=== PATIENT | female | born 1970 | race Caucasian/White ===

== ENCOUNTER → 2017-03-17 | Emergency (ER) | payer BC ==
[~2017-03-17] VITALS: Wt 117.9 kg
[~2017-03-17] MED LIST: CLARITIN10 MG PO; ZITHROMAX Z PA250 MG PO
== END ==
LOC: ED 15:45
DX: S80.11XA Contusion of right lower leg, initial encounter (principal); Z98.890 Other specified postprocedural states; W22.8XXA Striking against or struck by other objects, initial encounter; Y93.89 Activity, other specified; Y92.89 Other specified places as the place of occurrence of the external cause; Y99.9 Unspecified external cause status

== ENCOUNTER → 2017-06-14 | Outpatient (CLI) | payer BC ==
[2017-06-14 07:53] LABS: BASO % 0.2 % (0.0-1.0); EOS # 0.2 10*3/uL (0.0-0.4); EOS % 4.4 % (1.0-4.0); HEMATOCRIT 36.4 % (37.0-47.0); HEMOGLOBIN 10.9 g/dl (12.0-16.0); LYMPH # 1.3 10*3/uL (1.3-4.4); LYMPH % 26.1 % (27.0-41.0); MEAN CELL VOLUME 74.3 fl (81.0-99.0); MEAN CORPUSCULAR HGB 22.2 pg (27.0-31.0); MEAN CORPUSCULAR HGB CONC 29.9 g/dl (33.0-37.0); MONO # 0.4 10*3/uL (0.1-1.0); MONO % 7.8 % (3.0-9.0); NEUT # 3.1 10*3/uL (2.3-7.9); NEUT % 61.1 % (47.0-73.0); PLATELET COUNT AUTOMATED 225 10*3/uL (130-400); RED CELL DISTRI WIDTH 15.5 % (0-14.5)
[2017-06-14 08:26] LABS: ALBUMIN 3.4 gm/dl (3.1-4.5); ALKALINE PHOSPHATASE 73 U/L (45-117); BILIRUBIN, DIRECT < 0.1 mg/dL (0.0-0.2); BUN 14 mg/dl (7-24); CHLORIDE 106 mmol/L (98-107); CHOLESTEROL 147 mg/dL (<200); CREATININE 0.81 mg/dL (0.55-1.02); HDL CHOLESTEROL 44 mg/dl (40-60); LDL CHOLESTEROL 77 mg/dL (9-159); POTASSIUM 4.2 mmol/L (3.5-5.1); SGOT/AST 14 IU/L (3-35); SGPT/ALT 19 U/L (12-78); SODIUM 139 mmol/L (136-145); TOTAL PROTEIN 7.4 gm/dL (6.4-8.2); TRIGLYCERIDES 131 mg/dl (<150); VLDL CHOLESTEROL 26 mg/dL (6-40)
[2017-06-14 08:31] LABS: FREE T4 1.32 ng/dl (0.76-1.46)
[2017-06-15 07:04] LABS: FOLLICLE STIMULATING HORMONE 6.2 mIU/mL (.); LUTEINIZING HORMONE 004283 6.6 mIU/mL (.)
== END | disposition home or self-care (01) ==
LOC: LAB 07:10
PROVIDERS: Internal Medicine
DX: I10 Essential (primary) hypertension (principal); R63.5 Abnormal weight gain; R53.83 Other fatigue; R73.02 Impaired glucose tolerance (oral); E55.9 Vitamin D deficiency, unspecified; J00 Acute nasopharyngitis [common cold]; R42 Dizziness and giddiness

== ENCOUNTER → 2017-06-30 | Outpatient (CLI) | payer BC | END | disposition home or self-care (01) | LOC: US 07:06 | DX: K80.20 Calculus of gallbladder without cholecystitis without obstruction (principal); R10.11 Right upper quadrant pain; K76.0 Fatty (change of) liver, not elsewhere classified; R16.1 Splenomegaly, not elsewhere classified; J98.8 Other specified respiratory disorders ==

== ENCOUNTER → 2017-07-17 | Outpatient (CLI) | payer BC ==
[2017-07-17 08:21] LABS: BASO % 0.3 % (0.0-1.0); EOS # 0.2 10*3/uL (0.0-0.4); EOS % 2.9 % (1.0-4.0); HEMATOCRIT 37.2 % (37.0-47.0); HEMOGLOBIN 10.9 g/dl (12.0-16.0); LYMPH # 1.7 10*3/uL (1.3-4.4); LYMPH % 25.2 % (27.0-41.0); MEAN CELL VOLUME 75.6 fl (81.0-99.0); MEAN CORPUSCULAR HGB 22.2 pg (27.0-31.0); MEAN CORPUSCULAR HGB CONC 29.3 g/dl (33.0-37.0); MONO # 0.5 10*3/uL (0.1-1.0); MONO % 7.5 % (3.0-9.0); NEUT # 4.2 10*3/uL (2.3-7.9); NEUT % 63.8 % (47.0-73.0); PLATELET COUNT AUTOMATED 239 10*3/uL (130-400); RED BLOOD COUNT 4.92 10*6/uL (4.10-5.10); RED CELL DISTRI WIDTH 15.8 % (0-14.5); WHITE BLOOD COUNT 6.5 10*3/uL (4.8-10.8)
[2017-07-17 08:46] LABS: IRON 29 ug/dL (50-170); TOTAL IRON BINDING CAPACITY 332 ug/dl (250-450)
== END | disposition home or self-care (01) ==
LOC: LAB 07:05
PROVIDERS: Internal Medicine
DX: D64.9 Anemia, unspecified (principal)

== ENCOUNTER 2019-08-25 12:39 | Inpatient (IN) | payer BC ==
[~2019-08-25] VITALS: Ht 165.1 cm; Wt 117.7 kg
--- NOTE | 2019-08-25 12:45 | NUR ---
TO ROOM 2 VIA EX, EKG AT BEDSIDE
[2019-08-25 12:47] VITALS: BP 173/72
--- NOTE | 2019-08-25 12:51 | NUR ---
LAB AT BEDSIDE
[2019-08-25 13:01] LABS: BASO % 0.4 % (0.0-1.0); EOS # 0.1 10*3/uL (0.0-0.4); EOS % 1.3 % (1.0-4.0); HEMATOCRIT 43.4 % (37.0-47.0); LYMPH # 1.4 10*3/uL (1.3-4.4); LYMPH % 25.7 % (27.0-41.0); MEAN CELL VOLUME 83.9 fl (81.0-99.0); MEAN CORPUSCULAR HGB 28.2 pg (27.0-31.0); MEAN CORPUSCULAR HGB CONC 33.6 g/dl (33.0-37.0); MEAN PLATELET VOLUME 9.9 fl (9.6-12.3); MONO # 0.3 10*3/uL (0.1-1.0); MONO % 5.5 % (3.0-9.0); NEUT # 3.6 10*3/uL (2.3-7.9); NEUT % 66.9 % (47.0-73.0); PLATELET COUNT AUTOMATED 199 10*3/uL (130-400); RED BLOOD COUNT 5.17 10*6/uL (4.10-5.10); WHITE BLOOD COUNT 5.4 10*3/uL (4.8-10.8)
[2019-08-25 13:11] LABS: ACT PARTIAL THROMBO TIME 25.1 SECONDS (20.0-32.1)
[2019-08-25 13:18] LABS: ALBUMIN 3.8 gm/dl (3.1-4.5); ALKALINE PHOSPHATASE 70 U/L (45-117); BUN 12 mg/dl (7-24); CHLORIDE 107 mmol/L (98-107); CREATININE 0.87 mg/dL (0.55-1.02); POTASSIUM 3.6 mmol/L (3.5-5.1); SGOT/AST 18 IU/L (3-35); SGPT/ALT 27 U/L (12-78); SODIUM 140 mmol/L (136-145); TOTAL PROTEIN 7.6 gm/dL (6.4-8.2)
[2019-08-25 13:19] LABS: TROPONIN I < 0.015 ng/ml (<0.045)
[2019-08-25 15:57] VITALS: BP 163/78
[2019-08-25 16:20] VITALS: BP 160/70
--- NOTE | 2019-08-25 16:20 | NUR ---
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 Chief complaint is CHEST PAIN. Patient arrived via bed from ER. Monitor applied. Initial assessment completed. Vital signs taken and recorded. ARSENIO CHANCE DO notified of admission to the unit. Orders received. See assessment for past medical history, medications and allergies. Patient and/or family oriented to unit. [facility] visitation policy reviewed. Clothing/patient valuable form completed. SWAPNIL PULIDO
--- NOTE | 2019-08-25 16:49 | NUR ---
DR MUNOZ'S ANSWERING SERVICE NOTIFIED OF CONSULT. AWAITING CALL BACK AT THIS TIME.
--- NOTE | 2019-08-25 18:00 | NUR ---
PT NOTIFIED THAT SHE WILL HAVE ECHO AND STRESS TEST ON [employer] IN THE MORNING. PT ALSO NOTIFIED THAT SHE IS TO BE NPO AFTER MIDNIGHT.
--- NOTE | 2019-08-25 18:32 | NUR ---
PT STATES THAT SHE DOES NOT TAKE ANY HOME MEDICATIONS.
[2019-08-25 20:00] VITALS: BP 131/65
--- NOTE | 2019-08-25 20:08 | NUR ---
PT REQUESTED AND RECEIVED PO TYLENOL PER PRN ORDER FOR HEADACHE RATED 5/10. WILL MONITOR EFFECTIVENESS. PT DENIES ANY CHEST PAIN/PRESSURE AT PRESENT TIME. CALL LIGHT IN REACH.
--- NOTE | 2019-08-25 21:03 | NUR ---
EARLIER TYLENOL EFFECTIVE PER PT. WILL MONITOR. CALL LIGHT IN REACH.
[2019-08-26] VITALS: BP 126/65
--- NOTE | 2019-08-26 00:40 | NUR ---
PT SLEEPING IN BED, RESP-EASY AND REGULAR. CALL LIGHT IN REACH. SEE SHIFT ASSESSMENT.
[2019-08-26 06:02] LABS: BASO % 0.7 % (0.0-1.0); EOS # 0.2 10*3/uL (0.0-0.4); EOS % 3.5 % (1.0-4.0); HEMATOCRIT 43.8 % (37.0-47.0); LYMPH # 1.7 10*3/uL (1.3-4.4); LYMPH % 38.9 % (27.0-41.0); MEAN CELL VOLUME 85.7 fl (81.0-99.0); MEAN CORPUSCULAR HGB 28.2 pg (27.0-31.0); MEAN CORPUSCULAR HGB CONC 32.9 g/dl (33.0-37.0); MEAN PLATELET VOLUME 10.1 fl (9.6-12.3); MONO # 0.4 10*3/uL (0.1-1.0); MONO % 8.5 % (3.0-9.0); NEUT # 2.1 10*3/uL (2.3-7.9); NEUT % 48.2 % (47.0-73.0); PLATELET COUNT AUTOMATED 189 10*3/uL (130-400); RED BLOOD COUNT 5.11 10*6/uL (4.10-5.10); WHITE BLOOD COUNT 4.3 10*3/uL (4.8-10.8)
[2019-08-26 06:14] LABS: ALBUMIN 3.5 gm/dl (3.1-4.5); BUN 14 mg/dl (7-24); CHLORIDE 108 mmol/L (98-107); CREATININE 0.83 mg/dL (0.55-1.02); POTASSIUM 4.2 mmol/L (3.5-5.1); SGOT/AST 16 IU/L (3-35); SGPT/ALT 26 U/L (12-78); SODIUM 143 mmol/L (136-145)
[2019-08-26 06:22] LABS: ALKALINE PHOSPHATASE 69 U/L (45-117); CHOLESTEROL 136 mg/dL (<200); FREE T4 1.42 ng/dl (0.76-1.46); HDL CHOLESTEROL 48 mg/dl (40-60); LDL CHOLESTEROL 72 mg/dL (9-159); TOTAL PROTEIN 7.2 gm/dL (6.4-8.2); TRIGLYCERIDES 82 mg/dl (<150); VLDL CHOLESTEROL 16 mg/dL (6-40)
[2019-08-26 06:33] LABS: ACT PARTIAL THROMBO TIME 25.1 SECONDS (20.0-32.1)
[2019-08-26 08:00] VITALS: BP 139/69
--- NOTE | 2019-08-26 10:15 | NUR ---
INFORMED CONSENT OBTAINED FOR LEXISCAN NUCLEAR STRESS TEST WITH DR. MUNOZ. RESTING EKG NSR WITH A RESTING HR OF 62 WITH BP 116/74. LUNGS CLEAR WITH SPO2 OF 96% ON ROOM AIR. PT COMPLETED A 1:00 LEXISCAN PROTOCOL RECEIVING LEXISCAN 0.4 MG IV OVER 10 SECONDS. HAD NO CHEST PAIN OR ANY EKG CHANGES. DID C/O FEELING "WOBBLY" THAT WAS RELIEVED IN RECOVERY. HAD A PEAK HR OF 91 WITH BP OF 130/64. LAST RECOVERY HR OF 96 WITH BP OF 144/60. AWAITING SCANNING IN STABLE CONDITION.
--- NOTE | 2019-08-26 11:59 | NUR ---
PT MEDICATED WITH PRN TYLENOL AT THIS TIME FOR C/O A HEADACHE. WILL MONITOR.
[2019-08-26 12:00] VITALS: BP 136/72
[2019-08-26] MEDS ORDERED: ZESTRIL10 MG PO (13:22)
[2019-08-26] MEDS ORDERED: VISTARIL25 MG PO (13:30)
--- NOTE | 2019-08-26 14:23 | NUR ---
HEPLOCK AND VP OUTCOMES DISCONTINUED. DISCHARGE INSTRUCTIONS REVIEWED. FOLLOW UP CARE DISCUSSED AND PATIENT PROVIDED NUMBER FOR RESIDENT CLINIC.
--- NOTE | 2019-08-26 14:24 | NUR ---
PT TAKEN VIA WHEELCHAIR OUT FOR DISCHARGE BY THE PA.
== END 2019-08-26 14:24 | disposition home or self-care (01) | DRG 311 ==
LOC: ED 12:39 → EDHOLD 14:25 → 4E 14:43
PROVIDERS: Internal Medicine; Nurse Practitioner Family; ADMIT Internal Medicine
PROC: 3E073KZ Introduction of Other Diagnostic Substance into Coronary Artery, Percutaneous Approach (ICD-10-PCS; principal; 2019-08-26)
PROC: 4A02XM4 Measurement of Cardiac Total Activity, External Approach (ICD-10-PCS; principal; 2019-08-26)
DX: I20.9 Angina pectoris, unspecified (principal); Z68.41 Body mass index [BMI] 40.0-44.9, adult; I10 Essential (primary) hypertension; E66.01 Morbid (severe) obesity due to excess calories; R73.9 Hyperglycemia, unspecified; D72.819 Decreased white blood cell count, unspecified; Z98.891 History of uterine scar from previous surgery; R73.03 Prediabetes; Z87.891 Personal history of nicotine dependence; Z82.49 Family history of ischemic heart disease and other diseases of the circulatory system; Z79.899 Other long term (current) drug therapy

== ENCOUNTER → 2019-09-05 | Outpatient (CLI) | payer BC ==
[~2019-09-05] MED LIST changes: +VISTARIL25 MG PO; +ZESTRIL10 MG PO
== END | disposition home or self-care (01) ==
LOC: RESCLI 00:25
DX: Z12.31 Encounter for screening mammogram for malignant neoplasm of breast (principal); I10 Essential (primary) hypertension; F41.9 Anxiety disorder, unspecified; E55.9 Vitamin D deficiency, unspecified; J30.2 Other seasonal allergic rhinitis; R07.82 Intercostal pain; Z79.899 Other long term (current) drug therapy

== ENCOUNTER → 2019-09-16 | Outpatient (CLI) | payer BC | END | disposition home or self-care (01) | LOC: US 03:44 | DX: Z12.31 Encounter for screening mammogram for malignant neoplasm of breast (principal); R07.82 Intercostal pain; I10 Essential (primary) hypertension; F41.9 Anxiety disorder, unspecified; J30.2 Other seasonal allergic rhinitis; E55.9 Vitamin D deficiency, unspecified ==

== ENCOUNTER → 2020-04-24 | Outpatient (CLI) | payer BC ==
[2020-04-24 08:32] LABS: ALBUMIN 3.4 gm/dl (3.1-4.5); BUN 14 mg/dl (7-24); CHLORIDE 110 mmol/L (98-107); CHOLESTEROL 151 mg/dL (<200); CREATININE 0.82 mg/dL (0.55-1.02); POTASSIUM 3.8 mmol/L (3.5-5.1); SGOT/AST 12 IU/L (3-35); SGPT/ALT 22 U/L (12-78); SODIUM 140 mmol/L (136-145); TRIGLYCERIDES 88 mg/dl (<150); VLDL CHOLESTEROL 18 mg/dL (6-40)
[2020-04-24 08:42] LABS: ALKALINE PHOSPHATASE 79 U/L (45-117); HDL CHOLESTEROL 57 mg/dl (40-60); LDL CHOLESTEROL 76 mg/dL (9-159); TOTAL PROTEIN 7.3 gm/dL (6.4-8.2)
== END | disposition home or self-care (01) ==
LOC: LAB 07:41
PROVIDERS: Physician Assistant Medical; ATTEND Family Medicine
DX: Z13.220 Encounter for screening for lipoid disorders (principal)

== ENCOUNTER → 2020-10-29 | Outpatient (CLI) | payer BC | END | disposition home or self-care (01) | LOC: US 08:51 | PROVIDERS: ATTEND Physician Assistant Medical | DX: Z12.31 Encounter for screening mammogram for malignant neoplasm of breast (principal); K76.0 Fatty (change of) liver, not elsewhere classified; K80.20 Calculus of gallbladder without cholecystitis without obstruction; N64.89 Other specified disorders of breast ==

== ENCOUNTER → 2021-12-13 | Outpatient (CLI) | payer BC | END | disposition home or self-care (01) | LOC: MAMMO 11-15 08:30 | PROVIDERS: ATTEND Physician Assistant Medical | DX: Z12.31 Encounter for screening mammogram for malignant neoplasm of breast (principal); N64.9 Disorder of breast, unspecified; N63.11 Unspecified lump in the right breast, upper outer quadrant ==

== ENCOUNTER → 2023-01-19 | Outpatient (CLI) | payer BC | END | disposition home or self-care (01) | LOC: MAMMO 07:28 | PROVIDERS: ATTEND Physician Assistant Medical | DX: Z12.31 Encounter for screening mammogram for malignant neoplasm of breast (principal); N63.11 Unspecified lump in the right breast, upper outer quadrant ==

== ENCOUNTER → 2024-02-20 | Outpatient (CLI) | payer BC | END | disposition home or self-care (01) | LOC: MAMMO 14:33 | PROVIDERS: ATTEND Family Medicine | DX: Z12.31 Encounter for screening mammogram for malignant neoplasm of breast (principal) ==

== ENCOUNTER → 2025-03-24 | Outpatient (CLI) | payer BC | END | disposition home or self-care (01) | LOC: MAMMO 07:44 | PROVIDERS: ATTEND Family Medicine | DX: Z12.31 Encounter for screening mammogram for malignant neoplasm of breast (principal); R92.313 Mammographic fatty tissue density, bilateral breasts ==